=== PATIENT | male | born 1975 | race African-American/Black ===

== ENCOUNTER 2021-11-01 09:53 | Emergency (ER) | payer MEDICAID ==
[~2021-11-01] VITALS: Ht 190.5 cm; Wt 95.0 kg
[2021-11-01] MEDS ORDERED: SODIUM CHLORIDE 0.9% 1,000 ML IV ONE (10:15)
[2021-11-01] MEDS ORDERED: KETOROLAC 30MG/ML VIAL IV STA (10:47)
[2021-11-01] MEDS ORDERED: ONDANSETRON HCL 4MG/2ML INJ IV STA (10:47)
[2021-11-01 11:09] VITALS: BP 154/106
[2021-11-01 11:19] LABS: CHLORIDE 100 mEq/L (98-107)
[2021-11-01 11:23] LABS: ETHANOL BLOOD 136 mg/dL
[2021-11-01] MEDS ORDERED: MAGNESIUM/ALUMINUM HYDROXIDE/SIMETHICONE 30ML UDC PO STA (11:38)
[2021-11-01] MEDS ORDERED: CHLORDIAZEPOXIDE 25MG CAPSULE PO ONE (11:45)
[2021-11-01 12:17] LABS: BASOPHILS % 0.6 % (0.0-2.0); HEMOGLOBIN. 15.3 g/dL (14.0-18.0); LYMPHOCYTES % 14.2 % (20.0-50.0); MEAN CORPUSCULAR HEMOGLOBIN 28.8 pg (28.0-32.0); MEAN CORPUSCULAR VOLUME 86.8 fL (80.0-94.0); MEAN PLATELET VOLUME 9.3 fl (7.4-10.4); MONOCYTES % 5.7 % (2.0-8.0); NEUTROPHILS % 79.5 % (40.0-76.0); PLATELET 126 x1000/uL (130-400); RED BLOOD CELL COUNT 5.29 mill/uL (4.7-6.1); RED CELL DISTRIBUTION WIDTH 13.5 % (11.6-14.6)
[2021-11-01] MEDS ORDERED: OMEP40CA20 MT (13:35)
== END 2021-11-01 15:01 | disposition home or self-care (01) ==
LOC: ER 09:53
DX: R10.9 Unspecified abdominal pain (principal); F10.129 Alcohol abuse with intoxication, unspecified; Y90.6 Blood alcohol level of 120-199 mg/100 ml
CPT/HCPCS: 36415; 74018; 80053; 80320; 83690; 85025; 93005; 96361; 96374; 96375; 99285; J1885; J2405; J7030; G0480

== ENCOUNTER 2023-11-25 23:09 | Inpatient (IN) | payer OTHER, BC ==
[~2023-11-25] VITALS: Ht 193 cm; Wt 135.6 kg
[~2023-11-25 23:09] MED LIST: OMEP40CA20 MT
[2023-11-25] MEDS: HALOPERIDOL LACTATE 5MG/ML VIAL IM STA (23:21)
[2023-11-25] MEDS: DIPHENHYDRAMINE 50MG/ML VIAL IM STA (23:21)
[2023-11-25] MEDS: LORAZEPAM 2MG/ML INJ IM ONE (23:30)
[2023-11-26 02:11] LABS: BASOPHILS % 1.2 % (0.0-2.0); EOSINOPHILS % 0.1 % (0.0-5.0); HEMATOCRIT. 40.3 % (42.0-52.0); HEMOGLOBIN. 13.4 g/dL (14.0-18.0); LYMPHOCYTES % 29.9 % (20.0-50.0); MEAN CORPUSCULAR HEMOGLOBIN 29.1 pg (28.0-32.0); MEAN CORPUSCULAR HGB CONC 33.3 g/dL (31.0-37.0); MEAN CORPUSCULAR VOLUME 87.5 fL (80.0-94.0); MEAN PLATELET VOLUME 11.1 fl (7.4-10.4); MONOCYTES % 3.6 % (2.0-8.0); NEUTROPHILS % 65.2 % (40.0-76.0); PLATELET 104 x1000/uL (130-400); RED BLOOD CELL COUNT 4.61 mill/uL (4.7-6.1); RED CELL DISTRIBUTION WIDTH 15.3 % (11.6-14.6); WHITE BLOOD COUNT 4.8 x1000/uL (4.5-11.0)
[2023-11-26 03:37] LABS: ACETAMINOPHEN < 2 ug/mL (10-30); ALANINE AMINOTRANSFERASE 111 IU/L (10-49); ALBUMIN 4.5 g/dL (3.2-4.8); ASPARTATE AMINOTRANSFERASE 116 IU/L (<34); BILIRUBIN TOTAL 0.4 mg/dL (0.1-1.0); CALCIUM 9.3 mg/dL (8.7-10.4); CARBON DIOXIDE 25 mEq/L (21-32); CHLORIDE 106 mEq/L (98-107); CREATININE 0.9 mg/dL (0.6-1.3); ETHANOL BLOOD 376 mg/dL (<10); GLUCOSE 111 mg/dL (70-105); POTASSIUM 3.2 mEq/L (3.5-5.1); PROTEIN TOTAL 6.9 g/dL (6.0-8.3); SODIUM 145 mEq/L (136-145); UREA NITROGEN BLOOD 10 mg/dL (9-23)
[2023-11-26] MEDS ORDERED: CHLORDIAZEPOXIDE 25MG CAPSULE PO ONE (06:00)
[2023-11-26] MEDS ORDERED: LORAZEPAM 2MG/ML INJ IV ONE (06:00)
[2023-11-26] MEDS: CHLORDIAZEPOXIDE 25MG CAPSULE PO NR (08:21)
[2023-11-26] MEDS: LORAZEPAM 2MG/ML INJ IV NR (08:21)
[2023-11-26] MEDS: FOLIC ACID 1 MG, THIAMINE HCL 100 MG, MVI, ADULT NO.1 10 ML in DEXTROSE 5% WATER 1,000 ML IV ONE (08:21)
[2023-11-26 09:18] VITALS: BP 141/76; PULSE 80; RESP 16; TEMP 97
[2023-11-26 10:00] VITALS: BP 141/76; PULSE 80; RESP 18; TEMP 98.1
[2023-11-26] MEDS ORDERED: ACETAMINOPHEN 325MG TABLET PO PRN (11:15)
[2023-11-26] MEDS ORDERED: ONDANSETRON HCL 4MG/2ML INJ IV PRN (11:15)
[2023-11-26] MEDS ORDERED: LORAZEPAM 4MG/ML INJ IV PRN (11:15)
[2023-11-26 12:00] VITALS: BP 159/91; PULSE 70; RESP 18; TEMP 92.2
[2023-11-26] MEDS: POTASSIUM CHLORIDE 20MEQ TABLET SR PO NR (12:52)
[2023-11-26] MEDS: CHLORDIAZEPOXIDE 25MG CAPSULE PO SCH (13:30)
[2023-11-26] MEDS ORDERED: LORAZEPAM 2MG/ML INJ IV PRN (15:45)
[2023-11-26 16:00] VITALS: BP 169/106; PULSE 89; RESP 18; TEMP 97.4
[2023-11-26] MEDS: METOPROLOL TARTRATE 50MG TABLET PO SCH (17:28)
[2023-11-26 17:30] LABS: CLARITY URINE CLEAR (CLEAR); COLOR URINE YELLOW (YELLOW); GLUCOSE URINE NEGATIVE (NEGATIVE); KETONES URINE NEGATIVE (NEGATIVE); LEUKOCYTE ESTERASE URINE NEGATIVE (NEGATIVE); NITRITE URINE NEGATIVE (NEGATIVE); OCCULT BLOOD URINE NEGATIVE (NEGATIVE); PH URINE 7.5 (4.5-8.0); PROTEIN URINE NEGATIVE (NEGATIVE); UROBILINOGEN URINE 0.2 E.U./dL (0.2-1.0)
[2023-11-26 17:41] LABS: *AMPHETAMINES SCREEN URINE NEGATIVE (NEGATIVE); *BARBITURATES SCREEN URINE NEGATIVE (NEGATIVE); *BENZODIAZEPINES SCREEN URINE NEGATIVE (NEGATIVE); *COCAINE SCREEN URINE NEGATIVE (NEGATIVE); CANNABINOID URINE SCREEN NEGATIVE (NEGATIVE); ECSTASY MDMA SCREEN URINE NEGATIVE (NEGATIVE); METHADONE URINE SCREEN Neg (NEGATIVE); OPIATES URINE SCREEN NEGATIVE (NEGATIVE); PHENCYCLIDINE URINE SCREEN NEGATIVE (NEGATIVE)
[2023-11-26 20:00] VITALS: BP 166/99; PULSE 87; RESP 20; TEMP 101.1
[2023-11-26] MEDS: LORAZEPAM 1MG TABLET PO PRN (21:19)
[2023-11-27] VITALS: BP 115/105; PULSE 86; RESP 19; TEMP 99.1
[2023-11-27] MEDS: CLONIDINE 0.1MG TABLET PO PRN (01:30)
[2023-11-27 04:00] VITALS: BP 143/100; PULSE 85; RESP 20; TEMP 98.7
[2023-11-27 08:40] VITALS: BP 134/87; PULSE 85; RESP 18; TEMP 97.9
[2023-11-27 09:04] LABS: POTASSIUM 2.9 mEq/L (3.5-5.1)
[2023-11-27 12:00] VITALS: BP 135/93; PULSE 77; RESP 18; TEMP 98
[2023-11-27] MEDS: POTASSIUM CHLORIDE 20MEQ TABLET SR PO NR (13:03)
[2023-11-27 16:00] VITALS: BP 126/81; PULSE 78; RESP 18; TEMP 97.1
[2023-11-27 18:00] VITALS: BP 126/81; PULSE 78; TEMP 97.1; O2SAT 99
== END 2023-11-27 19:12 | disposition home or self-care (01) | DRG 92 ==
LOC: ER 23:39 → 7WST 11-26 06:41 → EDBEDREQ 11-26 06:42
PROVIDERS: ADMIT Internal Medicine; ATTEND Internal Medicine
DX: R47.81 Slurred speech (principal); F10.239 Alcohol dependence with withdrawal, unspecified; F10.229 Alcohol dependence with intoxication, unspecified; I10 Essential (primary) hypertension; E87.6 Hypokalemia; R26.81 Unsteadiness on feet; Y90.8 Blood alcohol level of 240 mg/100 ml or more
CPT/HCPCS: 36415; 80053; 80305; 80307; 80320; 80329; 81003; 82962; 84132; 85025; 99285; J1200; J1630; J2060; J3411; J3490; J7070; G0480